=== PATIENT | male | born 1990 | race Two or more races ===

== ENCOUNTER 2018-11-06 02:22 | Emergency (ER) | payer MEDICAID ==
[2018-11-06 04:43] LABS: ABSOLUTE BASOPHILS # (AUTO) 0.1 10^3/uL (0.0-0.2); ABSOLUTE EOSINOPHILS # (AUTO) 0.1 10^3/uL (0.0-0.6); ABSOLUTE MONOCYTES (AUTO) 0.7 10^3/uL (0.1-1.4); ABSOLUTE NEUT (AUTO) 5.7 10^3/uL (1.7-8.2); BASOPHILS % (AUTO) 0.7 % (0-2); EOSINOPHILS % (AUTO) 1.4 % (0-6); HEMATOCRIT 46.3 % (37.9-51.0); HEMOGLOBIN 15.7 g/dL (13.5-17.0); LYMPHOCYTES % (AUTO) 13.1 % (13-45); MEAN CORPUSCULAR HEMOGLOBIN 31.8 pg (27.0-33.4); MEAN CORPUSCULAR HGB CONC 33.9 g/dL (32.0-36.0); MEAN CORPUSCULAR VOLUME 94 fl (80-97); MONOCYTES % (AUTO) 9.7 % (3-13); PLATELET COUNT 113 10^3/uL (150-450); RED BLOOD COUNT 4.95 10^6/uL (4.35-5.55); RED CELL DISTRIBUTION WIDTH 13.5 % (11.5-14.0); SEGMENTED NEUTROPHILS % (AUTO) 75.1 % (42-78); TOTAL CELLS COUNTED % (AUTO) 100 %; WHITE BLOOD COUNT 7.6 10^3/uL (4.0-10.5)
[2018-11-06 05:02] LABS: APPEARANCE,URINE CLOUDY; BILIRUBIN,URINE NEGATIVE (NEGATIVE); COLOR,URINE YELLOW; GLUCOSE, URINE NEGATIVE (NEGATIVE); KETONES,URINE TRACE mg/dL (NEGATIVE); LEUKOCYTE ESTERASE,URINE NEGATIVE (NEGATIVE); NITRITE,URINE NEGATIVE (NEGATIVE); PROTEIN,URINE NEGATIVE (NEGATIVE)
[2018-11-06 05:08] LABS: ALANINE AMINOTRANSFERASE 54 U/L (21-72); ALBUMIN 5.1 g/dL (3.5-5.0); ALKALINE PHOSPHATASE 90 U/L (38-126); ANION GAP 11 (5-19); ASPARTATE AMINO TRANSFERASE 35 U/L (17-59); BILIRUBIN,DIRECT 0.4 mg/dL (0.0-0.4); BLOOD UREA NITROGEN 19 mg/dL (7-20); CARBON DIOXIDE 28 mmol/L (22-30); CHLORIDE 105 mmol/L (98-107); GLUCOSE 110 mg/dL (75-110); POTASSIUM 4.6 mmol/L (3.6-5.0); SODIUM 143.8 mmol/L (137-145); TOTAL PROTEIN 8.8 g/dL (6.3-8.2)
[2018-11-06 05:12] LABS: ACETAMINOPHEN < 10 ug/mL (10-30); ALCOHOL < 10 mg/dL (NONE DETECTED); SALICYLATE < 1.0 mg/dL (2.0-20.0)
--- NOTE | 2018-11-06 05:16 | ER Document Report ---
ED General - General Chief Complaint: Suicidal Ideation Stated Complaint: SUICIDAL IDEATION Time Seen by Provider: 11/06/18 03:41 Notes: Patient is a pleasant 27-year-old male who presents with complaint of worsening depression and thoughts of suicide. Patient says she is been struggling with depression since he was a kid. This is used to be on medications for ADHD and depression. He has been off medications for a long time since he has had fluctuating depression but recently became much worse. He admits he has had some relationship issues. Tonight he got to the point where he want to kill himself. Try to leave the house and had a contact as he planned on killing himself with a gun however the police stopped him and brought him here. He has no other complaints at this time. He has no other medical problems and currently does not take any medications. TRAVEL OUTSIDE OF THE [place] IN LAST 30 DAYS: No - Related Data Allergies/Adverse Reactions: No Known Allergies Allergy (Verified 11/06/18 03:47) Past Medical History - Social History Smoking Status: Current Every Day Smoker Chew tobacco use (# tins/day): No Frequency of alcohol use: None Drug Abuse: Marijuana Family History: Reviewed & Not Pertinent Patient has suicidal ideation: Yes Patient has homicidal ideation: No Renal/ Medical History: Denies: Hx Peritoneal Dialysis Musculoskeletal Medical History: Reports Hx Musculoskeletal Trauma Psychiatric Medical History: Reports: Hx Attention Deficit Hyperactivity Disorder, Hx Bipolar Disorder, Hx Depression Traumatic Medical History: Reports: Hx Fractures Past Surgical History: Reports: Hx Orthopedic Surgery - left arm surgery - Immunizations Immunizations up to date: No Hx Diphtheria, Pertussis, Tetanus Vaccination: No Review of Systems - Review of Systems Notes: My Normal Review Basic REVIEW OF SYSTEMS: CONSTITUTIONAL : Denies fever, chills, or sweats. Denies recent illness. EENT: Denies eye, ear, throat, or mouth pain or symptoms. Denies nasal or sinus congestion. CARDIOVASCULAR: Denies chest pain. RESPIRATORY: Denies cough, cold, or chest congestion. Denies shortness of breath, difficulty breathing, or wheezing. GASTROINTESTINAL: Denies abdominal pain. Denies nausea, vomiting, or diarrhea. MUSCULOSKELETAL: Denies neck or back pain or joint pain or swelling. SKIN: Denies rash or skin lesions. NEUROLOGICAL: Denies altered mental status or loss of consciousness. Denies headache. Denies weakness or paralysis or loss of use of either side. Denies problems with gait or speech. Denies sensory or motor loss. PSYCHIATRIC: Depression and suicidal ideations ALL OTHER SYSTEMS REVIEWED AND NEGATIVE. Physical Exam - Vital signs Vitals: Temp Pulse Resp BP Pulse Ox 98.2 F 78 20 135/98 H 100 11/06/18 02:40 11/06/18 02:40 11/06/18 02:40 11/06/18 02:40 11/06/18 02:40 - Notes Notes: General Appearance: Well nourished, alert, cooperative, no acute distress, no obvious discomfort. Vitals: reviewed, See vital signs table. Head: no swelling or tenderness to the head Eyes: PERRL, EOMI, Conjuctiva clear Mouth: No decreasd moisture Throat: No tonsillar inflammation, No airway obstruction, No lymphadenopathy Lungs: No wheezing, No rales, No rhonci, No accessory muscle use, good air exchange bilaterally. Heart: Normal rate, Regular rythm, No murmur, no rub Abdomen: Normal BS, soft, No rigidity, No abdominal tenderness, No guarding, no rebound, no abdominal masses, no organomegaly Extremities: good pulses in all extremities, no swelling or tenderness in the extremities, no edema. Skin: warm, dry, appropriate color, no rash Neuro: speech clear, oriented x 3, normal affect, responds appropriately to ques tions. Course - Re-evaluation Re-evalutation: 11/06/18 05:51 Patient obviously has signs of depression and admits to having thoughts of suicide even had a gun and had a plan to shoot himself. Patient does need mental health evaluation treatment. He is medically stable for mental health evaluation and treatment. I filled out IVC petition. I placed in the chart however this does not need to be faxed to computer technical support specialist at unless patient decides that he does want to leave as the patient currently is voluntary and very cooperative. Dictation of this chart was performed using voice recognition software; therefore, there may be some unintended grammatical errors. - Vital Signs Vital signs: Temp Pulse Resp BP Pulse Ox 98.2 F 78 20 135/98 H 100 11/06/18 02:40 11/06/18 02:40 11/06/18 02:40 11/06/18 02:40 06/18/19 02:40 - Laboratory Result Diagrams: 11/06/18 04:06 11/06/18 04:06 Laboratory results interpreted by me: 11/06/18 11/06/18 11/06/18 04:06 04:06 04:06 Plt Count 113 L Total Protein 8.8 H Albumin 5.1 H Urine Ketones TRACE H Urine Urobilinogen 4.0 H Salicylates < 1.0 L Acetaminophen < 10 L - EKG Interpretation by Me Additional EKG results interpreted by me: 11/06/18 05:14 EKG is reviewed and interpreted by me. EKG shows some mild concave up ST segment elevation in several leads consistent with early repolarization abnormality. No reciprocal ST segment depression. KS interval, QRS duration within normal range. QTc interval is prolonged. Discharge - Discharge Clinical Impression: Suicidal ideations Depression Qualifiers: Depression Type: unspecified Qualified Code(s): F32.9 - Major depressive disorder, single episode, unspecified Condition: Stable Disposition: Tertiary-Other
[2018-11-06 05:35] LABS: URINE AMPHETAMINES SCREEN NEGATIVE; URINE BARBITURATES SCREEN NEGATIVE; URINE BENZODIAZEPINES SCREEN NEGATIVE; URINE COCAINE SCREEN NEGATIVE; URINE MARIJUANA (THC) SCREEN UNCONFIRMED POSITIVE; URINE METHADONE SCREEN NEGATIVE; URINE PHENCYCLIDINE SCREEN NEGATIVE
--- NOTE | 2018-11-06 10:17 | ER Document Report ---
Doctor's Note Notes: 11/06/18 10:16 Rounds: Chart reviewed and patient interviewed. Patient is here because he felt depressed and suicidal. History of ADHD. Lab studies were all normal except for positive marijuana in the drug test. Vital signs are all normal. Patient is anxious, but denies feeling suicidal at this time. Patient appears to be medically stable for transfer or discharge. Keri Rousseau MD
--- NOTE | 2018-11-06 10:51 | EKG REPORT ---
SEVERITY:- ABNORMAL ECG - SINUS RHYTHM BORDERLINE PROLONGED QT INTERVAL ST ELEV, PROBABLE NORMAL EARLY REPOL PATTERN : Confirmed by: Yuliya Verma MD 06-Nov-2018 10:50:12
--- NOTE | 2018-11-06 14:14 | PSYCHOLOGICAL NOTE ---
Psych Note - Psych Note Date seen by psych provider: 11/05/18 Psych Note: Presenting Problem: SI with plan to shoot self with gun after argument with girlfriend. Girlfriend identified their relationship has been rough lately, they are not on the same page and last night he asked for one more chance, she was not home and when she did not reply he responded. He packed a duffel bag, put his gun that is always loaded with one in the chamber in the duffel bag, said he was walking, going to the [place] and off self. Girlfriend, June ([phone]), stated they have been together for 10 years and have 3 children. When they first got together he made SI statements often, usually after not getting what he wanted. She stated on Monday she called the police after patient was in the living room screaming, showing out and said he would kill himself then put the gun to his head. Diagnosis: Relationship Distress with intimate Partner Unspecified Depressive Disorder Cannabis Use Disorder, Severe Impression/Plan: Recommendation to complete full IVC and seek placement. This is the second time patient made a SI statement followed up with gesture, having means and access, in the past 2-[address] Araiza regarding the management and care of patient. ED Physician in agreement with recommendations.
[2018-11-06 14:56] VITALS: BP 146/87
== END 2018-11-06 15:20 | disposition short-term general hospital (02) ==
LOC: ER 02:22
DX: R45.851 Suicidal ideations (principal); F32.9 Major depressive disorder, single episode, unspecified; F17.200 Nicotine dependence, unspecified, uncomplicated
CPT/HCPCS: 36415; 80053; 80307; 81001; 85025; 93005; 93010; 99285